=== PATIENT | female | born 1995 | race Caucasian/White ===

== ENCOUNTER 2021-01-02 09:31 | Emergency (ER) | payer MEDICAID ==
[~2021-01-02] VITALS: Ht 165.1 cm; Wt 56.2 kg
--- NOTE | 2021-01-02 10:00 | NUR ---
assume pt care. c/o lower abdominal pain and cramping since this morning, history of gastric ulcers. pt denies dysuria. 12/25 pain. awaiting md virgen.
--- NOTE | 2021-01-02 10:02 | NUR ---
dr cox at bedside for eval.
[2021-01-02] MEDS ORDERED: ONDANSETRON HCL/PF 4 MG/2 ML VIAL ONE ×2 (10:06→14:01)
[2021-01-02] MEDS ORDERED: MORPHINE SULFATE INJ 4 MG/ML DISP.SYRIN ONE (10:06)
--- NOTE | 2021-01-02 10:07 | NUR ---
dr cox at bedside for eval.
[2021-01-02 10:19] LABS: BASOPHILS % (AUTO) 0.3 % (0.0-2.0); HEMATOCRIT 41 % (33-45); HEMOGLOBIN 13.7 g/dL (11.5-14.8); LYMPHOCYTES # (AUTO) 1.9 K/uL (0.8-4.8); LYMPHOCYTES % (AUTO) 22.2 % (20.0-44.0); MEAN CORPUSCULAR HGB CONC 34 g/dl (31.0-36.0); MEAN CORPUSCULAR VOLUME 93 fL (82-100); MONOCYTES # (AUTO) 0.5 K/uL (0.1-1.30); MONOCYTES % (AUTO) 5.2 % (2.0-12.0); NEUTROPHILS # (AUTO) 6.1 K/uL (1.8-8.9); NEUTROPHILS % (AUTO) 71.3 % (43.0-81.0); PLATELET COUNT (AUTO) 224 K/uL (150-450); RED BLOOD CELL COUNT(AUTO) 4.38 MIL/uL (4.0-5.2); WHITE BLOOD COUNT (AUTO) 8.6 K/uL (4.3-11.0)
[2021-01-02] MEDS: MORPHINE SULFATE INJ 2 MG/ML DISP.SYRIN IV ONE ×3 (10:23→16:50)
[2021-01-02] MEDS: ONDANSETRON HCL/PF 4 MG/2 ML VIAL IVP ONE (10:23)
[2021-01-02 10:31] LABS: ALBUMIN 4.2 g/dL (3.4-5.0); BILIRUBIN,DIRECT 0.1 mg/dL (0.0-0.2); BILIRUBIN,TOTAL 0.3 mg/dL (0.2-1.0); CALCIUM, SERUM 9.2 mg/dL (8.5-10.1); CREATININE 0.9 mg/dL (0.6-1.3); POTASSIUM 3.5 mmol/L (3.5-5.1); TOTAL PROTEIN, SERUM 7.9 g/dL (6.4-8.2)
--- NOTE | 2021-01-02 10:55 | NUR ---
health information technologist at bedside for exam.
[2021-01-02] MEDS ORDERED: CT SWABBABLE VALVE TRANS SET 1 EA INFUS.SET MC ONE (11:05)
[2021-01-02] MEDS ORDERED: IOHEXOL-300 100 ML VIAL IV ONE (11:05)
[2021-01-02] MEDS ORDERED: IV NS 0.9% 250 ML IV ONE (11:06)
[2021-01-02] MEDS ORDERED: MORPHINE SULFATE INJ 2 MG/ML DISP.SYRIN ONE ×2 (12:52→16:33)
--- NOTE | 2021-01-02 13:15 | NUR ---
PAGED DR. ASHRAF FOR ADMISSION
[2021-01-02] MEDS ORDERED: OMEP40CA21 PO (13:27)
[2021-01-02] MEDS ORDERED: ERGO500093 PO (13:27)
[2021-01-02] MEDS ORDERED: SUCR1TAB PO (13:27)
--- NOTE | 2021-01-02 14:17 | NUR ---
received a call from [facility] ([facility] and report given), will call back for transfer info and peer to peer report.
--- NOTE | 2021-01-02 15:31 | NUR ---
Pt accepted to [facility] under Dr. [employer] case managment will call back for bed assignment
--- NOTE | 2021-01-02 16:18 | NUR ---
pt going to [phone], number for report [phone] transport eta [id number]
[2021-01-02 16:56] VITALS: BP 122/81
--- NOTE | 2021-01-02 16:56 | NUR ---
Patient does not wish to proceed with medical care recommended by Dr. Waggoner. Patient given information related to possible complications, up to and including , which could occur as a result of leaving the hospital at this time. Patient verbalizes understanding of risks involved due to leaving against medical advice. Patient has signed AMA form.
== END 2021-01-02 16:56 | disposition left against medical advice (07) ==
LOC: ER 09:37
DX: N83.201 Unspecified ovarian cyst, right side (principal); Z53.29 Procedure and treatment not carried out because of patient's decision for other reasons; Z20.822 Contact with and (suspected) exposure to COVID-19; Z87.11 Personal history of peptic ulcer disease
CPT/HCPCS: 36415; 74177; 76856; 80048; 80076; 83690; 84703; 85025; 87081; 87426; 96374; 96375; 96376; 99285; C9803; J2270 ×3; J2405; J7050; Q9967